=== PATIENT | female | born 1950 | race Caucasian/White ===

== ENCOUNTER 2017-08-12 14:02 | Emergency (ER) | payer MEDICARE ==
[~2017-08-12 14:02] MED LIST: LEVO.075 PO; TRAM50TA PO
[2017-08-12 14:04] VITALS: BP 171/86; PULSE 70; RESP 20; TEMP 98.2; O2SAT 97
[2017-08-12] MEDS ORDERED: ASPI-516 CHEW (14:08)
[2017-08-12] MEDS ORDERED: THYR15 PO (14:08)
[2017-08-12] MEDS ORDERED: KETOROLAC TROMETHAMINE 60 MG/2 ML (IM) VIAL IM ONE (14:15)
[2017-08-12] MEDS ORDERED: ONDANSETRON ODT 4 MG TAB PO ONE (14:15)
[2017-08-12] MEDS ORDERED: MORPHINE SULFATE 2 MG/ML INJ IM ONE (14:15)
--- NOTE | 2017-08-12 15:03 | RADRPT ---
EXAM DATE/TIME: 08/12/2017 14:35 [facility] COMPARISON: No previous studies available for comparison. INDICATIONS : Right knee pain MEDICAL HISTORY : None. SURGICAL HISTORY : None. ENCOUNTER: Initial ACUITY: 3 weeks PAIN SCORE: 8/10 LOCATION: Right lateral knee FINDINGS: A standard 4 view examination of the right knee was obtained and demonstrates mild joint space narrow ing in the medial compartment with sclerosis and slight spurring. The patellofemoral joint is intact. There is mild fullness in the suprapatellar bursa region. There is diffuse osteopenia with no acute fracture or malalignment. The soft tissues are otherwise unremarkable. CONCLUSION: 1. Apparent small joint effusion. 2. Minimal osteoarthritic change and osteopenia. Jose Yanez MD on August 12, 2017 at 14:58 Board Certified Radiologist. This report was verified electronically.
--- NOTE | 2017-08-12 15:05 | PD ---
HPI Chief Complaint: Musculoskeletal Complaint Time Seen by Provider: 14:05 Travel History International Travel<30 days: No Contact w/Intl Traveler<30days: No Traveled to known affect area: No History of Present Illness HPI 66-year-old female that presents to the ED for evaluation of pain to her right knee. Per patient she's had this for about 20 have weeks now. Per patient she' s been able to deal with it at work with it. Per patient she twisted her knee and she's been having pain since. All the pain is in the posterior aspect of the knee. She taking [id number] remedies with some relief except that today she tried to reach up and felt a pop on her knee because his severe pain. Per patient she was not able to get up on her own again. She came here by ambulance for evaluation of this. No prior injuries. No hip pain. Per patient the pain goes down the knee. No numbness, tingling, weakness. Per patient the pain is 10 out of 10 with weightbearing. 7 out of 10. Denies any prior surgeries or recent travel. Pain is mostly to the posterior aspect of the knee. PFSH Past Medical History Thyroid Disease: Yes Tubal Ligation: Yes Past Surgical History Other Surgery: Yes (NECK SURG) Social History Alcohol Use: Yes (RARELY) Tobacco Use: No Substance Use: No Allergies-Medications (Allergen,Severity, Reaction): Coded Allergies: Sulfa (Sulfonamide Antibiotics) (Unverified Allergy, Severe, VOMITING, ) Reported Meds & Prescriptions Reported Meds & Active Scripts Active Hydrocodone-Acetamin 5-325 mg (Hydrocodone/Acetaminophen) 5 Mg-325 Mg Tablet 1 Tab PO Q6HR PRN Prednisone 20 Mg Tab 20 Mg PO BID [address] (Diclofenac Sodium) 75 Mg Tabdr 75 Mg PO BID PRN Reported Aspirin 81 Mg Chew 81 Mg CHEW DAILY [place] Thyroid (Thyroid) 15 Mg Tab Unknown Dose PO DAILY Review of Systems Except as stated in HPI: all other systems reviewed are Neg Physical Exam Narrative GENERAL: SKIN: Warm and dry. HEAD: Atraumatic. Normocephalic. EYES: Pupils equal and round. No scleral icterus. No injection or drainage. ENT: No nasal bleeding or discharge. Mucous membranes pink and moist. Tongue is midline. No uvula deviation. NECK: Trachea midline. No JVD. CARDIOVASCULAR: Regular rate and rhythm. No murmurs, S3, S4. RESPIRATORY: No accessory muscle use. Clear to auscultation. Breath sounds equal bilaterally. GASTROINTESTINAL: Abdomen soft, non-tender, nondistended. Hepatic and splenic margins not palpable. MUSCULOSKELETAL: Extremities without clubbing, cyanosis, or edema. No obvious deformities. Full range of motion of the upper and lower extremities bilaterally with exception of the right knee for which patient has a lot of pain especially with flexion of the knee. Ligaments appear to be intact. Anterior and posterior test negative. 2+ pulses bilaterally. Sensation intact bilaterally. Valgus and varus test negative. NEUROLOGICAL: Awake and alert. No obvious cranial nerve deficits. Motor grossly within normal limits. Five out of 5 muscle strength in the arms and legs. Normal speech. PSYCHIATRIC: Appropriate mood and affect; insight and judgment normal. Data Data Last Documented VS Vital Signs Date Time Temp Pulse Resp B/P (MAP) Pulse Ox O2 Delivery O2 Flow Rate FiO2 08/12/17 14:04 98.2 70 20 171/86 (114) 97 Orders Orders Knee, Complete (4vws) (08/12/17 ) Morphine Inj (Morphine Inj) (08/12/17 14:15) Ondansetron Odt (Zofran Odt) (08/12/17 14:15) Ketorolac Inj (Toradol Inj) (08/12/17 14:15) Tibia/Fibula (Ap/Lat) (08/12/17 ) Ed Discharge Order (08/12/17 15:32) [facility] Medical Decision Making Medical Screen Exam Complete: Yes Emergency Medical Condition: Yes Medical Record Reviewed: Yes Interpretation(s) xray of the right knee showed joint edema, otherwise negative Differential Diagnosis Ligamental injury versus fracture versus muscle strain versus meniscal injury Narrative Course 66-year-old female that presents to the ED for evaluation of right knee injury. Patient was properly examined and was found to have signs and symptoms consistent appears to be ligamental injury. X-ray was done. Patient given IM shot. X-rays showed no bony injury but joint effusion. Reassessed and still in pain but overall does appear to be internal derangement of knee, very likely meniscal injury. Ligaments appear intact. Will treat with crutches and brace. Given prescriptions for lortab, diclofenac sodium and prednisone. Given information for various local orthopaedics to follow up with. See ED if worst. F /u with PCP. Diagnosis Primary Impression: Internal derangement of knee, acute Qualified Codes: M23.91 - Unspecified internal derangement of right knee Referrals: Adam Fishman MD,Marcella Hankins MD, MD,Moon Candelario MD, MD, Srinivasa MD Patient Instructions: General Instructions, Narcotic given in the ED Additional Instructions: Take medications as prescribed. Follow-up with PCP or orthopaedic doctor this week. See ED for any worsening symptoms. Do not drink or drive while taking pain medication. Apply ice or heat as needed for pain Med/Other Pt SpecificInfo: Prescription(s) given Scripts Hydrocodone/Acetaminophen (Hydrocodone-Acetamin 5-325 mg) 5 Mg-325 Mg Tablet 1 TAB PO Q6HR Y for PAIN SCALE 1 TO 10, #14 Prov: Stacie Del Rosario MD 08/12/17 Prednisone (Prednisone) 20 Mg Tab 20 MG PO BID for 5 Days, #10 TAB 0 Refills Prov: Stacie Del Rosario MD 08/12/[address] (Diclofenac Sodium DR) 75 Mg Tabdr 75 MG PO BID Y for PAIN SCALE 1 TO 10, #20 TAB 0 Refills Prov: Stacie Del Rosario MD 08/12/17 Disposition: 01 DISCHARGE HOME Condition: Gene Pink Aug 12, 2017 15:05
--- NOTE | 2017-08-12 15:09 | RADRPT ---
EXAM DATE/TIME: 08/12/2017 14:38 [facility] COMPARISON: No previous studies available for comparison. INDICATIONS : Right leg pain MEDICAL HISTORY : None. SURGICAL HISTORY : None. ENCOUNTER: Initial ACUITY: 3 weeks PAIN SCORE: 10/10 LOCATION: Right proximal tibia FINDINGS: Two view examination of the right tibia demonstrates no evidence of fracture or dislocation. Bony mi neralization is normal. The soft tissue structures are intact. CONCLUSION: Unremarkable examination of the right tibia. Jose Yanez MD on August 12, 2017 at 15:02 Board Certified Radiologist. This report was verified electronically.
[2017-08-12] MEDS ORDERED: HYDR-3516 PO (15:33)
[2017-08-12] MEDS ORDERED: PRED20 PO (15:33)
[2017-08-12] MEDS ORDERED: DICL75TA PO (15:33)
== END 2017-08-12 15:59 | disposition home or self-care (01) ==
LOC: PHEFT 14:02
DX: M23.91 Unspecified internal derangement of right knee (principal); M25.461 Effusion, right knee; M17.11 Unilateral primary osteoarthritis, right knee; E07.9 Disorder of thyroid, unspecified; Z79.899 Other long term (current) drug therapy; Z88.2 Allergy status to sulfonamides
CPT/HCPCS: 73564; 73590; 96372; 99284; J1885; J2270